=== PATIENT | female | born 1995 | race Caucasian/White ===

== ENCOUNTER 2018-07-31 07:42 | Emergency (ER) | payer MEDICAID ==
[2018-07-31 07:51] VITALS: BMI 20.4
[2018-07-31 07:55] VITALS: BP 105/65; PULSE 95; TEMP 98.9; O2SAT 99
--- NOTE | 2018-07-31 08:42 | C.PDOC ---
History Of Present Illness 23 y/o female pt presents to the ER c/o swollen 1st and 2nd toe on left foot. Pt reports she dropped a big spray can on her big toe and second toe last night at around 11 pm. Pt applied an ice pack on her left toe with no relief. Associated sx includes tingling sensation on Pt states that pain is currently intermittent. Pt denies fever, chills, change in sensation and numbness. Time Seen by Provider: 07/31/18 08:28 Chief Complaint (Nursing): Lower Extremity Problem/Injury History Per: Patient History/Exam Limitations: no limitations Onset/Duration Of Symptoms: Hrs Current Symptoms Are (Timing): Still Present - Ankle/Foot Description Of Injury: Struck With Object Past Medical History Reviewed: Historical Data, Nursing Documentation, Vital Signs Vital Signs: Last Vital Signs Temp 98.9 F 07/31/18 07:54 Pulse 95 H 07/31/18 07:54 Resp 17 07/31/18 07:54 BP 105/65 07/31/18 07:54 Pulse Ox 99 07/31/18 07:54 Family History: States: No Known Family Hx - Social History Hx Alcohol Use: No Hx Substance Use: No - Immunization History Hx Tetanus Toxoid Vaccination: No Hx Influenza Vaccination: No Hx Pneumococcal Vaccination: No Review Of Systems Except As Marked, All Systems Reviewed And Found Negative. Constitutional: Negative for: Fever, Chills Musculoskeletal: Positive for: Foot Pain (sweling and pain on 1st and 2nd left toe) Neurological: Positive for: Other (tingling; no change in sensation). Negative for: Numbness Physical Exam - Physical Exam Appears: Non-toxic, No Acute Distress Skin: Warm, Dry Head: Normacephalic Extremity: Tenderness (left distal phalanx of left hallux ), No Deformity, Swelling (left distal phalanx of left hallux; 30%) Neurological/Psych: Oriented x3, Normal Speech ED Course And Treatment O2 Sat by Pulse Oximetry: 99 (RA) Pulse Ox Interpretation: Normal - Other Rad left foot X-Ray: Interpreted by Me, Viewed By Me Interpretation: no obvious fx or dislocation Medical Decision Making Medical Decision Making: Impression: swollen 1st and 2nd left toe Plans: -- Ibuprofen -- left foot XR Disposition - Disposition Referrals: [facility] [place] [facility] [Outside] [facility] [place] [Outside] Disposition: HOME/ ROUTINE Disposition Time: 09:29 Condition: GOOD Additional Instructions: Follow up with medicine clinic or your PCP and take Motrin for pain Apply ice and and elevate your foot for pain relief return if pain is getting worse Prescriptions: Ibuprofen [Motrin] 600 mg PO Q6 #20 tab Instructions: Contusion (DC) Forms: [employer] ([place]ayan) - Clinical Impression Clinical Impression: Contusion - Scribe Statement The provider has reviewed the documentation as recorded by the Scribe Brenda Figueroa Provider Attestation: All medical record entries made by the Scribe were at my direction and personally dictated by me. I have reviewed the chart and agree that the record accurately reflects my personal performance of the history, physical exam, medical decision making, and the department course for this patient. I have also personally directed, reviewed, and agree with the discharge instructions and disposition.
[2018-07-31 09:30] VITALS: RESP 18
--- NOTE | 2018-07-31 12:49 | RAD ---
PROCEDURE: Radiographs of the left great toe. TECHNIQUE:: AP radiograph of the left foot, with oblique and lateral view of the left great toe. COMPARISON: None. FINDINGS: BONES: Normal. No fracture. JOINTS: Normal. SOFT TISSUES: Normal. OTHER FINDINGS: None. IMPRESSION: No evidence of acute fracture or dislocation.
== END 2018-07-31 09:29 | disposition home or self-care (01) ==
LOC: C.ER 07:42
DX: S90.112A Contusion of left great toe without damage to nail, initial encounter (principal); S90.122A Contusion of left lesser toe(s) without damage to nail, initial encounter; W22.8XXA Striking against or struck by other objects, initial encounter